=== PATIENT | female | born 1995 | race African-American/Black ===

== ENCOUNTER 2017-03-02 19:18 | Inpatient (IN) | payer OTHER ==
[2017-03-02] MEDS ORDERED: AMPICILLIN - 2 GM in SODIUM CHLORIDE 100 ML IVPB ONE (20:45)
[2017-03-02] MEDS ORDERED: DEXTROSE 5%-LACTATED RINGERS 1,000 ML IV SCH (20:45)
[2017-03-02 21:05] LABS: URINE APPEARANCE CLEAR; URINE BILIRUBIN NEGATIVE (NEGATIVE); URINE BLOOD NEGATIVE (NEGATIVE); URINE COLOR LTYELLOW; URINE GLUCOSE (UA) 1+ (NEGATIVE); URINE KETONE TRACE (NEGATIVE); URINE LEUK ESTERASE NEGATIVE (NEGATIVE); URINE NITRITE NEGATIVE (NEGATIVE); URINE PROTEIN NEGATIVE (NEGATIVE); URINE UROBILINOGEN NEGATIVE mg/dL (0.2-1.0)
[2017-03-02 21:25] VITALS: BMI 24.5
[2017-03-02] MEDS ORDERED: ELECTROLYTE-148 SOLN 1,000 ML IV SCH (21:30)
[2017-03-02] MEDS ORDERED: BUTORPHANOL TARTRATE 1 MG/ML VIAL IVPB ONE (21:30)
[2017-03-02] MEDS ORDERED: PROMETHAZINE HCL 25 MG/1 ML VIAL IVPB ONE (21:30)
[2017-03-02 21:48] LABS: BASOPHIL 0.3 % (0-2.0); EOSINOPHIL 0.5 % (0-4.5); MCH 29.7 pg (25.7-33.7); MEAN CELL VOLUME 87.3 fl (80-96); MEAN PLT VOLUME 8.9 fl (7.5-11.1); NEUTROPHILS 74.2 % (42.8-82.8); PLATELET COUNT 248 K/MM3 (134-434); RDW 12.7 % (11.6-15.6)
[2017-03-02 22:01] LABS: INR 1.02 (0.82-1.09); PROTHROMBIN TIME (PATIENT) 11.2 SEC (9.98-11.88)
[2017-03-02 22:46] LABS: ANION GAP 10 (8-16); CALCIUM 9.4 mg/dL (8.5-10.1); CO2 23 mmol/L (21-32); CREATININE 0.5 mg/dL (0.55-1.02); GLUCOSE,RANDOM 130 mg/dL (74-106)
[2017-03-02 22:53] LABS: URINE MARIJUANA THC NEGATIVE ng/ml (CUTOFF=50)
[2017-03-03 00:02] LABS: HIV 1 & 2 AB NEGATIVE; HIV 1 AGp24 NEGATIVE
[2017-03-03] MEDS ORDERED: AMPICILLIN - 1 GM in SODIUM CHLORIDE 100 ML IVPB SCH (00:45)
--- NOTE | 2017-03-03 01:07 | PN ---
Progress Note (short form) - Note Progress Note: cx ful . 100 vx +! mi, fhr cat 1, arom , clear
--- NOTE | 2017-03-03 01:16 | HP ---
Past Medical History - Primary Care Physician PCP:: John Spence - Admission Chief Complaint: 38.6 weeks, labor History of Present Illness: 03/02/17. 2139 21 yo f care in [facility] c/o of contraction, no rom, no bleeding, cx 3 cm 80 vx -1 mi, fhr cat 1, contraction q 2 min History Source: Patient Limitations to Obtaining History: No Limitations - Past Medical History ...: 1 ...Para: 0 ...Term: 0 ...: 0 ...Spon : 0 ...Induced : 0 ...Multiple Gestation: 0 ...LMP: 06/03/16 ... Weeks Gestation by Dates: 38.6 ...EDC by Dates: 03/10/17 - Past Surgical History Hx Myomectomy: No Hx Transabdominal Cerclage: No - Smoking History Smoking history: Never smoked Have you smoked in the past 12 months: No - Alcohol/Substance Use Hx Alcohol Use: No - Social History Usual Living Arrangement: Yes: With Spouse History of Recent Travel: No Home Medications - Allergies Allergies/Adverse Reactions: Allergies Allergy/AdvReac Type Severity Reaction Status Date / Time onion Allergy Severe Difficulty Verified 03/02/17 20:24 Breathing shellfish derived Allergy Severe Difficulty Verified 03/02/17 20:23 Breathing - Home Medications Home Medications: Ambulatory Orders Vitamins (Sjr) - 1 tab PO DAILY 03/02/17 Review of Systems - Review of Systems Constitutional: reports: No Symptoms Eyes: reports: No Symptoms HENT: reports: No Symptoms Neck: reports: No Symptoms Cardiovascular: reports: No Symptoms Respiratory: reports: No Symptoms Gastrointestinal: reports: No Symptoms Genitourinary: reports: No Symptoms Breasts: reports: No Symptoms Reported Musculoskeletal: reports: No Symptoms Integumentary: reports: No Symptoms Neurological: reports: No Symptoms Endocrine: reports: No Symptoms Physical Exam - Maternity Vital Signs: Vital Signs Temperature 98.5 F 03/02/17 23:00 Pulse Rate 81 03/02/17 23:00 Respiratory Rate 19 03/02/17 23:00 Blood Pressure 122/75 03/02/17 23:00 O2 Sat by Pulse Oximetry (%) Constitutional: Yes: Well Nourished, No Distress, Calm Eyes: Yes: WNL, Conjunctiva Clear, EOM Intact HENT: Yes: WNL, Atraumatic, Normocephalic Neck: Yes: WNL, Supple, Trachea Midline Cardiovascular: Yes: WNL, Regular Rate and Rhythm Breast(s): Yes: WNL - Abdominal Exam/OB Fundal Height: 40 Number of Fetuses: Single Presentation: Vertex Contractions: Yes Regularity: Regular Intensity: Strong Monitor Mode: External Heart Rate Location: [facility] Category: I Accelerations: Uniform Decelerations: None - Vaginal Exam/OB Vaginal Bleediing: No Speculum Exam: No Dilatation (cm): 3 to 4 Effacement (%): 80 Amniotic Membrane Status: Bulging Presentation: Vertex/Position Station: -1 - Physical Exam Musculoskeletal: Yes: WNL Extremities: Yes: WNL Edema: LLE: Trace, RLE: Trace Deep Tendon Reflex Grade: Normal +2 ...Motor Strength: WNL Psychiatric: Yes: WNL - Labs Lab Results: CBC, BMP 03/02/17 21:00 03/02/17 21:00 Hemorrhage Risk Assessment - Risk Factors Risk Score: 0 Risk Level: Low Risk Problem List - Problems (1) with 38 completed weeks gestation Code(s): Z3A.38 - 38 WEEKS GESTATION OF (2) First stage of labor established Code(s): PKB8432 - Assessment/Plan admit, fhm, pain managements
[2017-03-03] MEDS ORDERED: BENZOCAINE 28 GM HEMORRHOIDAL OINTMENT TP PRN (01:56)
[2017-03-03] MEDS ORDERED: BISACODYL 10 MG SUPP.RECT RC PRN (01:56)
[2017-03-03] MEDS ORDERED: oxyCODONE HCL 5 MG TABLET PO PRN (01:56)
[2017-03-03] MEDS ORDERED: BENZOCAINE 20% 57 GM BOTTLE TP PRN (01:56)
[2017-03-03] MEDS ORDERED: METHYLERGONOVINE MALEATE 0.2 MG/1 ML AMP IM PRN (01:56)
[2017-03-03] MEDS ORDERED: WITCH HAZEL 50% (TUCKS) 40 PAD/JAR PAD TP PRN (01:56)
[2017-03-03] MEDS ORDERED: D5W-LR W/ 20 UNITS OXYTOCIN 1,000 ML IV SCH (02:00)
[2017-03-03] MEDS: ACETAMINOPHEN 325 MG TABLET (FP) PO PRN (02:58)
[2017-03-03] MEDS: IBUPROFEN 600 MG TABLET (FP) PO PRN (02:59)
[2017-03-03] MEDS: FERROUS SO4 325 MG TABLET (FP) PO SCH ×2 (08:00→17:43)
[2017-03-03] MEDS: PRENATAL VITAMINS W/ FOLIC ACID TABLET (FP) PO SCH (09:37)
[2017-03-04] MEDS: FERROUS SO4 325 MG TABLET (FP) PO SCH ×2 (08:21→18:03)
[2017-03-04 08:51] LABS: BASOPHIL 0.3 % (0-2.0); EOSINOPHIL 1.2 % (0-4.5); MCHC 33.8 g/dl (32.0-36.0); MEAN PLT VOLUME 8.2 fl (7.5-11.1); NEUTROPHILS 71.2 % (42.8-82.8); PLATELET COUNT 241 K/MM3 (134-434); RDW 12.9 % (11.6-15.6); WHITE BLOOD COUNT 11.8 K/mm3 (4.0-10.0)
--- NOTE | 2017-03-04 09:16 | PN ---
Post Progress Note - Subjective Subjective: 21 yo Para 1, status post normal vaginal delivery, seen and evaluated. Doing well No complaints Post Day: 1 Type of Delivery: Vital Signs: Vital Signs Temperature 98.1 F 03/03/17 20:52 Pulse Rate 80 03/03/17 20:52 Respiratory Rate 20 03/03/17 20:52 Blood Pressure 114/64 03/03/17 20:52 O2 Sat by Pulse Oximetry (%) 100 03/03/17 02:45 Breast Exam: Yes: Soft Uterus: Yes: Fundus Firm Abdomen/GI: Yes: Abdomen soft, Tolerating PO Lochia: Yes: Rubra Lochia, amount: Moderate Extremities: Yes: Calves non-tender Activity: Ambulating - Labs Labs: CBC WBC 11.8 K/mm3 (4.0-10.0) H D 03/04/17 08:35 RBC 3.60 M/mm3 (3.60-5.2) 03/04/17 08:35 Hgb 10.8 GM/dL (10.7-15.3) 03/04/17 08:35 Hct 32.0 % (32.4-45.2) L 03/04/17 08:35 MCV 89.0 fl (80-96) 03/04/17 08:35 MCH 30.0 pg (25.7-33.7) 03/04/17 08:35 MCHC 33.8 g/dl (32.0-36.0) 03/04/17 08:35 RDW 12.9 % (11.6-15.6) 03/04/17 08:35 Plt Count 241 K/MM3 (134-434) 03/04/17 08:35 MPV 8.2 fl (7.5-11.1) 03/04/17 08:35 Neutrophils % 71.2 % (42.8-82.8) 03/04/17 08:35 Lymphocytes % 18.5 % (8-40) 03/04/17 08:35 Monocytes % 8.8 % (3.8-10.2) 03/04/17 08:35 Eosinophils % 1.2 % (0-4.5) D 03/04/17 08:35 Basophils % 0.3 % (0-2.0) 03/04/17 08:35 Problem List - Problems (1) Normal spontaneous vaginal delivery Code(s): O80 - ENCOUNTER FOR FULL-TERM UNCOMPLICATED DELIVERY Assessment/Plan Status post vaginal delivery Stable Continue care
[2017-03-04] MEDS: PRENATAL VITAMINS W/ FOLIC ACID TABLET (FP) PO SCH (10:16)
[2017-03-04] MEDS: ACETAMINOPHEN 325 MG TABLET (FP) PO PRN (15:50)
[2017-03-04] MEDS: IBUPROFEN 600 MG TABLET (FP) PO PRN (15:50)
[2017-03-04] MEDS ORDERED: SENNOSIDES/DOCUSATE COMBO (SENNA PLUS) TABLET (UD) PO PRN (22:00)
--- NOTE | 2017-03-05 00:45 | DS ---
Physical Exam-BUSINESS CHANGE MANAGER Vital Signs: Vital Signs Temperature 98.2 F 03/04/17 22:00 Pulse Rate 83 03/04/17 22:00 Respiratory Rate 20 03/04/17 22:00 Blood Pressure 108/63 03/04/17 22:00 O2 Sat by Pulse Oximetry (%) 100 03/03/17 02:45 Constitutional: Yes: Well Nourished, No Distress, Calm Eyes: Yes: WNL, Conjunctiva Clear, EOM Intact HENT: Yes: WNL, Atraumatic, Normocephalic Neck: Yes: WNL, Supple, Trachea Midline Cardiovascular: Yes: WNL, Regular Rate and Rhythm Respiratory: Yes: WNL, Regular, CTA Bilaterally Gastrointestinal: Yes: WNL ...Rectal Exam: Yes: WNL Renal/: Yes: WNL ....Post : Yes: Uterus firm, Uterus non-tender, Slight lochia rubra Breast(s): Yes: WNL Musculoskeletal: Yes: WNL Extremities: Yes: WNL Edema: No Integumentary: Yes: WNL Neurological: Yes: WNL, Alert, Oriented ...Motor Strength: WNL Psychiatric: Yes: WNL, Alert, Oriented Labs: CBC, BMP 03/04/17 08:35 03/02/17 21:00 Delivery - Delivery Vaginal Delivery: Spontaneous (no complication) Type of Anesthesia: Local Episiotomy/Laceration: Midline EBL (cc): 300 Delivery, Single - Stages of Labor Date 1st Stage Initiatied: 03/02/17 Time 1st Stage Initiated: 17:30 Date 2nd Stage Initiated: 03/03/17 Time 2nd Stage Initiated: 01:00 Date of Delivery: 03/03/17 Time of Delivery: 01:37 Time Placenta Delivered: 01:39 Placenta: Yes: Spontaneous (no complication) - Condition of Addiction Counselor/Hairspring Studder Present: No Infant Gender: Female Weight: 6 lb 13 oz Position: Left, OA Total Hours ROM (Hrs/Mins): 39min - 1 Minute Total Score: 9 5 Minutes Total Score: 9 - Feeding Plan Initial Plan: Elected not to breastfeed exclusively throughout hospitalization Discharge Summary Reason For Visit: LABOR ADMIT Current Active Problems First stage of labor established (Acute) Normal spontaneous vaginal delivery (Acute) with 38 completed weeks gestation (Acute) Procedures: Principal: RODOLFO Hospital Course: uncomplicated Condition: Good - Instructions Diet, Activity, Other Instructions: regular diet, follow up [facility] 4 weeks Referrals: John Spence MD [Staff Physician] - Disposition: HOME - Home Medications Comprehensive Discharge Medication List: Ambulatory Orders Vitamins (Sjr) - 1 tab PO DAILY 03/02/17 Ibuprofen [Motrin -] 600 mg PO QID #28 tablet 03/04/17
[2017-03-05] MEDS: PRENATAL VITAMINS W/ FOLIC ACID TABLET (FP) PO SCH (10:06)
[2017-03-05] MEDS: FERROUS SO4 325 MG TABLET (FP) PO SCH (10:06)
[2017-03-05 12:43] VITALS: BP 106/47; PULSE 91; TEMP 98.3
== END 2017-03-05 12:00 | disposition home or self-care (01) | DRG 560 ==
LOC: JDEL 19:18 → JLDR 20:45 → J3W 03-03 03:30
PROVIDERS: ADMIT Obstetrics & Gynecology; ATTEND Obstetrics & Gynecology
PROC: 10E0XZZ Delivery of Products of Conception, External Approach (ICD-10-PCS; principal; 2017-03-03)
PROC: 0W8NXZZ Division of Female Perineum, External Approach (ICD-10-PCS; 2017-03-03)
DX: O80 Encounter for full-term uncomplicated delivery (principal); Z3A.38 38 weeks gestation of pregnancy; Z37.0 Single live birth
CPT/HCPCS: 36415; 59409; 80048; 80307; 81003; 85025; 85610; 85730; 86593; 86850; 86900; 86901; 87389

== ENCOUNTER 2018-10-14 03:49 | Emergency (ER) | payer OTHER ==
[2018-10-14 04:27] VITALS: BP 121/70; PULSE 112; TEMP 99.2; BMI 21.9
[2018-10-14] MEDS ORDERED: ACETAMINOPHEN 500 MG TABLET (FP) PO ONE (04:37)
--- NOTE | 2018-10-14 04:39 | PDOC ---
History of Present Illness - General Chief Complaint: Cold Symptoms Stated Complaint: BODY ACHE,FEVER Time Seen by Provider: 10/14/18 04:19 History Source: Patient Exam Limitations: No Limitations - History of Present Illness Initial Comments: 10/14/18 04:37 HISTORY OF PRESENT ILLNESS: 23-year-old woman past medical history of asthma presents emergency department for evaluation of sore throat, fevers, body aches , nasal congestion moist productive cough for the past 2 days. Patient is taking Zyrtec to help with the nasal congestion but has not taken any antipyretic or pain medications. Patient reports increasing shortness of breath with inability to walk more than half a block before becoming short of breath. No recent travel or sick contacts. PAST MEDICAL HISTORY: Denies past medical history SURGICAL HISTORY: Denies ALLERGIES: No known drug allergies REVIEW OF SYSTEMS General/Constitutional: +fever. Denies weakness, weight change. HEENT: Denies change in vision. Denies ear pain or discharge. +sore throat. Cardiovascular: Denies chest pain or shortness of breath. Respiratory: Moist productive cough. Denies wheezing, or hemoptysis. Gastrointestinal: Denies nausea, vomiting, diarrhea or constipation. Denies rectal bleeding. Genitourinary: Denies dysuria, frequency, or change in urination. Musculoskeletal: +myalgias. Denies neck or back pain. Skin and breasts: Denies rash or easy bruising. Neurologic: Denies headache, vertigo, loss of consciousness, or loss of sensation. Psychiatric: Denies depression or anxiety. Endocrine: Denies increased thirst. Denies abnormal weight change. Hematologic/Lymphatic: Denies anemia, easy bleeding, or history of blood clots. Allergic/Immunologic: Denies hives or skin allergy. Denies latex allergy. PHYSICAL EXAM General Appearance: Well-appearing, appropriately dressed. No apparent distress , no intoxication. HEENT: EOMI, PERRLA, normal voice, TMs retracted bilaterally. No conjunctival pallor. No photophobia, scleral icterus. Oropharynx erythematous without lesions or exudate. Cobblestoning noted in the posterior. No nasal discharge present. Neck: Supple. Trachea midline. No tenderness, rigidity, carotid bruit, stridor , or thyromegaly. Nontender anterior cervical lymphadenopathy present. Respiratory/Chest: Lungs CTAB. No shortness of breath, chest tenderness, respiratory distress, accessory muscle use. No crackles, rales, rhonchi, stridor , wheezing, dullness Cardiovascular: RRR. S1, S2. No JVD, murmur, bradycardia, tachycardia. Vascular Pulses: Dorsalis-Pedis (R): 2+, Dorsalis-Pedis (L): 2+ Gastrointestinal/Abdominal: Normal bowel sounds. Abdomen soft, non-distended. No tenderness or rebound tenderness. No organomegaly, pulsatile mass, guarding, hernia, hepatomegaly, splenomegaly. Musculoskeletal/Extremities: Normal inspection. FROM of all extremities, normal capillary refill. Pelvis Stable. No CVA tenderness. No tenderness to extremities, pedal edema, swelling, erythema or deformity. Integumentary: Appropriate color, dry, warm. No cyanosis, erythema, jaundice or rash Neurologic: housing liaison II-XII intact. Fully oriented, alert. Appropriate mood/affect. Motor strength 5/5. No appreciable EOM palsy, facial droop or sensory deficit. Past History - Past Medical History Allergies/Adverse Reactions: Allergies Allergy/AdvReac Type Severity Reaction Status Date / Time onion Allergy Severe Difficulty Verified 10/14/18 04:19 Breathing shellfish derived Allergy Severe Difficulty Verified 10/14/18 04:19 Breathing Home Medications: Ambulatory Orders Vitamins (Sjr) - 1 tab PO DAILY 03/02/17 Ibuprofen [Motrin -] 600 mg PO QID #28 tablet 03/04/17 Oseltamivir Phosphate [Tamiflu -] 75 mg PO BID #10 capsule 10/14/18 Asthma: Yes (last attack years ago) Cancer: No Cardiac Disorders: No COPD: No Diabetes: No HTN: No Seizures: No Thyroid Disease: No - Suicide/Smoking/Psychosocial Hx Smoking History: Never smoked Have you smoked in the past 12 months: No Information on smoking cessation initiated: No Hx Alcohol Use: No Drug/Substance Use Hx: No Hx Substance Use Treatment: No *Physical Exam - Vital Signs Last Vital Signs Temp Pulse Resp BP Pulse Ox 99.2 F 112 H 20 121/70 100 10/14/18 04:19 10/14/18 04:19 10/14/18 04:19 10/14/18 04:19 10/14/18 04:19 Moderate Sedation - Procedure Monitoring Vital Signs: Procedure Monitoring Vital Signs Temperature 99.2 F 10/14/18 04:19 Pulse Rate 112 H 10/14/18 04:19 Respiratory Rate 20 10/14/18 04:19 Blood Pressure 121/70 10/14/18 04:19 O2 Sat by Pulse Oximetry (%) 100 10/14/18 04:19 Medical Decision Making - Medical Decision Making 10/14/18 04:38 A/P: 23-year-old woman with 2 days of flulike symptoms Influenza testing Tylenol 1 g orally Reassess 10/14/18 06:14 Influenza A+. I will discharge the patient home with prescription for Tamiflu and continue with supportive treatment. I discussed the physical exam findings, ancillary test results and final diagnoses with the patient. I answered all of the patient's questions. The patient was satisfied with the care received and felt comfortable with the discharge plan and treatment plan. The patient will call their primary care physician within 24 hours to arrange follow-up and will return to the Emergency Department with any new, persistent or worsening symptoms. *DC/Admit/Observation/Transfer Diagnosis at time of Disposition: Influenza A - Discharge Dispostion Disposition: HOME Condition at time of disposition: Stable Decision to Admit order: No - Prescriptions Prescriptions: Oseltamivir Phosphate [Tamiflu -] 75 mg PO BID #10 capsule - Referrals - Patient Instructions Additional Instructions: Rest, drink lots of fluids: Teas, water, soups, Pedialyte Saltwater gargles Steamy showers/seem to face break up mucus Old-fashioned treatments help! Avoid contact with others until fevers and cough resolved as this is very contagious Lots of handwashing and good hygiene Continue [id number] medications for symptomatic relief Tylenol or Motrin for fever and pain Take all of Tamiflu as directed: 1 tab every 12 hours for 5 days Followup with private physician in one to 2 days as needed or if worsening Return to emergency department for worsened symptoms, fevers, dehydration Influenza takes between 5 and 7 days for resolution To not participate in any activity, work, or school until fevers and cough are gone for at least one day - Post Discharge Activity
[2018-10-14] MEDS ORDERED: ACETAMINOPHEN 325 MG TABLET (FP) ONE (04:40)
== END 2018-10-14 06:23 | disposition home or self-care (01) ==
LOC: JER 03:49
DX: J09.X2 Influenza due to identified novel influenza A virus with other respiratory manifestations (principal)
CPT/HCPCS: 87804; 99281-25

== ENCOUNTER 2018-10-15 15:42 | Emergency (ER) | payer OTHER ==
[2018-10-15 15:52] VITALS: BMI 21.9
--- NOTE | 2018-10-15 17:22 | PDOC ---
Attending Attestation - Resident Resident Name: Natasha Jean - HPI HPI: 10/15/18 18:32 Pt presents to the ED complaining of a one day history of persistent vomiting and pleuritic chest pain. Patient was seen in the ED yesterday, treated for flu A and discharged home with tamiflu. Denies fever. does complain of persistent cough. - Physicial Exam PE: 10/15/18 18:34 Pt is alert and oriented x 4 qand in no acute distress. Lungs are clear. Heart has regular rate and rhythm, with mild tachycardia. - Medical Decision Making 10/15/18 18:36 Pt presents to the ED complaining of persistent nausea and vomiting after diagnosed with the flu and started on tamiflu. Differential includes vomiting secondary to flu, medication side effect, dehydration. Will treat with IVF, zofran and tylenol, check labs and reassess. 10/15/18 18:36
[2018-10-15] MEDS ORDERED: SODIUM CHLORIDE 1,000 ML IV STA (17:23)
[2018-10-15] MEDS ORDERED: ONDANSETRON 4 MG/2 ML VIAL IVPUSH ONE (17:23)
[2018-10-15] MEDS ORDERED: ACETAMINOPHEN 1000 MG/100 ML VIAL (NON FORMULARY) IVPB ONE (17:38)
[2018-10-15] MEDS ORDERED: ONDANSETRON 4 MG/2 ML VIAL ONE (17:53)
[2018-10-15] MEDS ORDERED: ACETAMINOPHEN INJECTION 100 ML IVPB ONE (17:53)
[2018-10-15 18:02] LABS: BASO % 0.2 % (0-2.0); EOS % 0.1 % (0-4.5); HEMATOCRIT 36.5 % (32.4-45.2); HEMOGLOBIN 12.8 GM/dL (10.7-15.3); LYMPH % 7.9 % (8-40); MCH 28.3 pg (25.7-33.7); MCHC 35.2 g/dl (32.0-36.0); MEAN CELL VOLUME 80.2 fl (80-96); MEAN PLT VOLUME 8.8 fl (7.5-11.1); MONO % 12.1 % (3.8-10.2); NEUT % 79.7 % (42.8-82.8); PLATELET COUNT 219 K/MM3 (134-434); RBC 4.55 M/mm3 (3.60-5.2); RDW 17.4 % (11.6-15.6); WHITE BLOOD COUNT 11.5 K/mm3 (4.0-10.0)
--- NOTE | 2018-10-15 18:09 | PDOC ---
History of Present Illness - General Chief Complaint: Nausea/Vomiting Stated Complaint: ABD PAIN/ LOWER BACK PAIN Time Seen by Provider: 10/15/18 17:20 History Source: Patient Exam Limitations: No Limitations - History of Present Illness Initial Comments: Pt is a 23 yo F, with PMH of asthma, who is presenting with complaints of nausea , vomiting, and chest pressure which is worse with coughing. Pt was seen in the ER yesterday, for complaints of 3 days of nasal congestion, clear rhinorrhea, cough productive of clear sputum, diffuse body aches, and subjective fevers/ chills. She was prescribed Tamiflu after testing positive for influenza A. After taking Tamiflu, pt had 7-8 episodes of NBNB vomiting and loose brown stool , with drops of "blood mixed in" after wretching. Pt did not take any OTC tylenol at home for fever or discomfort. Pt denies any vision changes, neck pain or stiffness, syncope, palpitations, SOB, abdominal pain, urinary symptoms , joint or leg swelling. Social: Pt denies any cigarette, alcohol, or drug use. Pt denies any recent travel or sick contacts. Surgical: no relevant history. Family: no relevant history. 10/15/18 18:21 Past History - Travel Traveled outside of the country in the last 30 days: No Close contact w/someone who was outside of country & ill: No - Past Medical History Allergies/Adverse Reactions: Allergies Allergy/AdvReac Type Severity Reaction Status Date / Time onion Allergy Severe Difficulty Verified 10/15/18 15:53 Breathing shellfish derived Allergy Severe Difficulty Verified 10/15/18 15:53 Breathing Home Medications: Ambulatory Orders Oseltamivir Phosphate [Tamiflu -] 75 mg PO BID #10 capsule 10/14/18 Nitrofurantoin Monohyd/M-Cryst [Macrobid -] 100 mg PO BID 5 Days #10 capsule 04/27 Asthma: Yes (last attack years ago) Cancer: No Cardiac Disorders: No COPD: No Diabetes: No HTN: No Seizures: No Thyroid Disease: No - Suicide/Smoking/Psychosocial Hx Smoking History: Never smoked Have you smoked in the past 12 months: No Information on smoking cessation initiated: No Hx Alcohol Use: No Drug/Substance Use Hx: No Hx Substance Use Treatment: No Review of Systems - Review of Systems Able to Perform ROS?: Yes Is the patient limited Eritrean proficient: No Constitutional: Yes: Chills, Fever, Loss of Appetite, Malaise, Weight Stable. No: Diaphoresis, Night Sweats, Weakness HEENTM: Yes: See HPI, Nose Congestion. No: Recent change in vision, Ear Pain, Nose Bleeding, Throat Pain, Throat Swelling, Difficulty Swallowing Respiratory: Yes: See HPI, Cough, Productive cough. No: Orthopnea, Shortness of Breath, Wheezing, Hemoptysis Cardiac (ROS): Yes: See HPI, Other (chest pressure). No: Chest Pain, Edema, Irregular Heart Rate, Lightheadedness, Palpitations, Syncope, Chest Tightness ABD/GI: Yes: Diarrhea, Nausea, Poor Appetite, Poor Fluid Intake, Vomiting. No: Constipated, Difficulty Swallowing, Rectal Bleeding, Abdominal cramping : No: Burning, Dysuria, Frequency, Hematuria, Pain, Urgency Musculoskeletal: Yes: Muscle Pain. No: Back Pain, Joint Pain, Muscle Weakness Integumentary: No: Rash Neurological: No: Headache, Numbness, Weakness, Unsteady Gait, Dizziness Psychiatric: No: Sleep Pattern Change, Change in Appetite Endocrine: No: Increased Urine, Change in Weight Hematologic/Lymphatic: No: Anemia, Blood Clots, Easy Bleeding, Easy Bruising *Physical Exam - Vital Signs Last Vital Signs Temp Pulse Resp BP Pulse Ox 99.6 F 103 H 19 129/69 99 10/15/18 15:50 10/15/18 15:50 10/15/18 15:50 10/15/18 15:50 10/15/18 15:50 - Physical Exam Comments: Pt afebrile, mildly tachycardic at 103. Pt appears anxious and uncomfortable, but is in NAD. Normal body habitus. PE showed pt alert and oriented. recording engineer generally intact, muscular strength and sensation intact. Eyes PERRLA, EOMI. Oropharynx without erythema or exudates, no LAD b/l. Moist mucous membranes and pt has abundant tears. Dried nasal congestion, hearing intact. Clear heart sounds, S1/S2, no JVD, b/l pedal edema, or heart murmur. Clear lung sounds, no respiratory distress, wheezes, crackles, subcutaneous emphysema, or accessory muscle use. No reproducible chest wall tenderness to palpation. No abdominal or CVA tenderness to palpation, no rebound, no guarding. Abdomen soft, non- distended, and with normoactive bowel sounds. Skin without jaundice or rash. 10/15/18 18:18 Moderate Sedation - Procedure Monitoring Vital Signs: Procedure Monitoring Vital Signs Temperature 99.6 F 10/15/18 15:50 Pulse Rate 103 H 10/15/18 15:50 Respiratory Rate 10/15/18 15:50 Blood Pressure 129/69 10/15/18 15:50 O2 Sat by Pulse Oximetry (%) 99 10/15/18 15:50 ED Treatment Course - LABORATORY CBC & Chemistry Diagram: 10/15/18 17:51 10/15/18 17:51 - RADIOLOGY Radiology Studies Ordered: Category Date Time Status CHEST PA & LAT [RAD] Stat Radiology 10/15/18 17:38 Ordered - Medications Given in the ED: ED Medications Discontinued Medications Generic Name Dose Route Start Last Admin Trade Name Freq PRN Reason Stop Dose Admin Acetaminophen 1,000 mg 10/15/18 17:38 10/15/18 18:05 Ofirmev Injection - IVPB 10/15/18 17:39 1,000 mg ONCE ONE Administration Ondansetron HCl 4 mg 10/15/18 17:23 10/15/18 18:05 Zofran Injection IVPUSH 10/15/18 17:24 4 mg ONCE ONE Administration Medical Decision Making - Medical Decision Making Pt was seen at bedside, also will be seen by attending Dr. Spencer. Pt presenting with complaints of nausea, vomiting, and chest pressure which is worse with coughing. Pt was seen in the ER yesterday, for complaints of 3 days of nasal congestion, clear rhinorrhea, cough productive of clear sputum, diffuse body aches, and subjective fevers/chills. She was prescribed Tamiflu after testing positive for influenza A. After taking Tamiflu, pt had 7-8 episodes of NBNB vomiting and loose brown stool, with drops of "blood mixed in" after wretching. Pt did not take any OTC tylenol at home for fever or discomfort. Pt denies any vision changes, neck pain or stiffness, syncope, palpitations, SOB, abdominal pain, urinary symptoms, joint or leg swelling. Pt afebrile, mildly tachycardic at 103. Pt appears anxious and uncomfortable, but is in NAD. Normal body habitus. PE showed pt alert and oriented. recording engineer generally intact, muscular strength and sensation intact. Eyes PERRLA, EOMI. Oropharynx without erythema or exudates, no LAD b/l. Moist mucous membranes and pt has abundant tears. Dried nasal congestion, hearing intact. Clear heart sounds, S1/S2, no JVD, b/l pedal edema, or heart murmur. Clear lung sounds, no respiratory distress, wheezes, crackles, subcutaneous emphysema, or accessory muscle use. No reproducible chest wall tenderness to palpation. No abdominal or CVA tenderness to palpation, no rebound, no guarding. Abdomen soft, non- distended, and with normoactive bowel sounds. Skin without jaundice or rash. Likely adverse reaction to Tamiflu with nausea and vomiting. Will get basic labs , x-ray, and UA to r/o UTI, overlying pneumonia, electrolyte imbalances. Very unlikely PE, as pt has symptoms suggestive of infectious nature, no hormone therapy, recent surgeries/travel/bedrest, no history of clots. Ordered work-up including CBC, CMP, serum , UA, urine culture, chest x- ray, ECG. Provided 1 L IV NS, 4 mg IV zofran, and 1 g ofirmev for improvement of discomfort and nausea. Will continue to reassess pt and monitor for symptomatic improvement. ECG: NSR, intervals WNL. No TWIs or significant ST segment changes. No significant changes from prior ECG. 10/15/18 18:11 CBC: WBC mildly elevated 11.5 CMP: Na 133, K 3.2 -- pt has n/v/d, tolerating PO intake now in ER. Serum test negative 10/15/18 18:40 Pt taken for chest x-ray. 10/15/18 18:42 Chest x-ray with no infiltrates. UA 3+ LE, +nitrites, +blood -- will treat for UTI. 10/15/18 19:00 Providing pt first dose of macrobid, will send remaining to pharmacy. Considering normal lab results and imaging, pt can be discharged to home with follow-up. Pt advised to follow-up with PCP in 1-2 days. Strict return precautions provided with pt understanding. Pt advised to d/c Tamiflu and to continue hydrating at home. Providing note for school. 10/15/18 19:09 *DC/Admit/Observation/Transfer Diagnosis at time of Disposition: Influenza A - Discharge Dispostion Disposition: HOME Condition at time of disposition: Improved Decision to Admit order: No - Prescriptions Prescriptions: Nitrofurantoin Monohyd/M-Cryst [Macrobid -] 100 mg PO BID 5 Days #10 capsule - Referrals Referrals: ON STAFF,NOT [Primary Care Provider] - - Patient Instructions Printed Discharge Instructions: DI for Influenza -- Adult Additional Instructions: You were seen in the ER today for nausea, vomiting, and diarrhea. The results of your labs and imaging today showed a urinary tract infection. We have sent antibiotics to your pharmacy. Please follow-up with your primary care doctor within a few days to discuss your visit and make sure your symptoms have improved. Please return to the ER if you have any worsening pain, fevers or chills that does not improve with tylenol or motrin, loss of consciousness, inability to tolerate food or fluids, or any other concerns. Please take your antibiotics as prescribed. You can continue to take tylenol or motrin every 4-6 hours for fever and discomfort. Please try to hydrate with fluids at home and eat as tolerated. - Post Discharge Activity Forms/Work/School Notes: Back to School
[2018-10-15 18:29] LABS: ALBUMIN 4.2 g/dl (3.4-5.0); ALK PHOS 76 U/L (45-117); ANION GAP 10 MMOL/L (8-16); BILIRUBIN,TOTAL 1.1 mg/dL (0.2-1); BLOOD UREA NITROGEN 10 mg/dL (7-18); CHLORIDE 100 mmol/L (98-107); CO2 22 mmol/L (21-32); CREATININE 0.8 mg/dL (0.55-1.3); GLUCOSE,RANDOM 104 mg/dL (74-106); POTASSIUM 3.2 mmol/L (3.5-5.1); SGOT/AST 20 U/L (15-37); SGPT/ALT 26 U/L (13-61); SODIUM 133 mmol/L (136-145); TOT PROT 8.9 g/dl (6.4-8.2)
[2018-10-15 18:55] LABS: URINE APPEARANCE CLOUDY; URINE BILIRUBIN NEGATIVE (<2.0 mg/dL); URINE COLOR YELLOW; URINE GLUCOSE (UA) NEGATIVE (NEGATIVE); URINE KETONE NEGATIVE (NEGATIVE); URINE LEUK ESTERASE 3+ (NEGATIVE); URINE NITRITE POSITIVE (NEGATIVE); URINE PROTEIN 2+ (NEGATIVE)
[2018-10-15] MEDS ORDERED: NITROFURANTOIN MACROCRYSTAL 50 MG CAPSULE (FP) ONE (19:12)
[2018-10-15] MEDS ORDERED: NITROFURANTOIN MACROCRYSTAL 50 MG CAPSULE (FP) PO SCH (19:15)
[2018-10-15 19:38] VITALS: BP 112/68; PULSE 90; TEMP 98.3
--- NOTE | 2018-10-16 11:53 | EKG ---
Test Reason : Blood Pressure : / mmHG Vent. Rate : 096 BPM Atrial Rate : 096 BPM P-R Int : 128 ms QRS Dur : 074 ms QT Int : 318 ms P-R-T Axes : -24 060 029 degrees QTc Int : 401 ms NORMAL SINUS RHYTHM NONSPECIFIC T WAVE ABNORMALITY ABNORMAL ECG NO PREVIOUS ECGS AVAILABLE Confirmed by SHADE ROWELY, ABDOUL ([id number]) on 10/16/2018 11:53:35 AM Referred By: Confirmed By:ABDOUL LAGUERRE MD
== END 2018-10-15 19:38 | disposition home or self-care (01) ==
LOC: JER 15:42
PROC: 3E0337Z Introduction of Electrolytic and Water Balance Substance into Peripheral Vein, Percutaneous Approach (ICD-10-PCS; principal; 2018-10-15)
PROC: 3E033GC Introduction of Other Therapeutic Substance into Peripheral Vein, Percutaneous Approach (ICD-10-PCS; 2018-10-15)
PROC: 3E033NZ Introduction of Analgesics, Hypnotics, Sedatives into Peripheral Vein, Percutaneous Approach (ICD-10-PCS; 2018-10-15)
DX: N39.0 Urinary tract infection, site not specified (principal); J09.X2 Influenza due to identified novel influenza A virus with other respiratory manifestations
CPT/HCPCS: 36415; 71046-TC-FY; 80053; 81003; 81015; 84703; 85025; 87086; 87186; 93005; 93010; 96361; 96374; 96375; 99283-25; J0131; J7030

== ENCOUNTER 2018-10-17 23:29 | Emergency (ER) | payer OTHER ==
[2018-10-17 23:36] VITALS: BP 116/70; PULSE 112; TEMP 99.8; BMI 21.9
--- NOTE | 2018-10-17 23:57 | PDOC ---
History of Present Illness <Devorah Flaherty - Last Filed: 10/18/18 00:23> - General History Source: Patient Exam Limitations: No Limitations - History of Present Illness Initial Comments: 10/18/18 00:51 The patient is a 23 year old female, with a significant past medical history of asthma, who presents to the emergency department with, cough, nasal congestion, and back pain. Patient was evaluated in the ER twice recently at which time she presented with similar symptoms and was diagnosed with influenza. Patient endorses her symptoms persisted with associated fevers. She notes taking Tylenol and albuterol treatments, with minimal relief. She denies recent headache or dizziness. She denies recent nausea, vomit, diarrhea or constipation. She denies recent dysuria, frequency, urgency or hematuria. She denies recent chest pain. Allergies: Onion, shellfish derived, penicillin. Past surgical history: None reported. Social history: Positive sick contacts, daughter is flu positive. <Alexander Haas - Last Filed: 10/18/18 00:56> - General Chief Complaint: Respiratory Stated Complaint: cough and cold symptoms Time Seen by Provider: 10/17/18 23:55 Past History - Past Medical History Asthma: Yes (last attack years ago) Cancer: No Cardiac Disorders: No COPD: No Diabetes: No HTN: No Seizures: No Thyroid Disease: No - Suicide/Smoking/Psychosocial Hx Smoking History: Never smoked Have you smoked in the past 12 months: No Information on smoking cessation initiated: No Hx Alcohol Use: No Drug/Substance Use Hx: No Hx Substance Use Treatment: No <Devorah Flaherty - Last Filed: 10/18/18 00:23> <Alexander Haas - Last Filed: 10/18/18 00:56> - Past Medical History Allergies/Adverse Reactions: Allergies Allergy/AdvReac Type Severity Reaction Status Date / Time onion Allergy Severe Difficulty Verified 10/15/18 15:53 Breathing shellfish derived Allergy Severe Difficulty Verified 10/15/18 15:53 Breathing Penicillins Allergy Verified 10/17/18 23:37 Home Medications: Ambulatory Orders Oseltamivir Phosphate [Tamiflu -] 75 mg PO BID #10 capsule 10/14/18 Nitrofurantoin Monohyd/M-Cryst [Macrobid -] 100 mg PO BID 5 Days #10 capsule 04/27 Acetaminophen 650 mg PO QID PRN #30 tablet MDD 8 tabs 10/18/18 Prednisone [Deltasone] 20 mg PO DAILY #3 tablet MDD 1 tab 10/18/18 Review of Systems - Review of Systems Able to Perform ROS?: Yes Comments:: 10/18/18 00:51 CONSTITUTIONAL: Present: Fever. EYES: Absent: visual changes ENT: Present: Nasal congestion. Absent: ear pain, no sore throat CARDIOVASCULAR: Absent: chest pain, no palpitations RESPIRATORY: Present: Cough. GI: Absent: abdominal pain, no nausea, no vomiting, no constipation, no diarrhea GENITOURINARY: Absent: dysuria, no frequency, no hematuria MUSKULOSKELETAL: Present: Back pain. Absent: no arthralgia, no myalgia SKIN: Absent: rash NEURO: Absent: headache <Alexander Haas - Last Filed: 10/18/18 00:56> *Physical Exam - Vital Signs Last Vital Signs Temp Pulse Resp BP Pulse Ox 99.8 F H 112 H 25 H 116/70 100 10/17/18 23:35 10/17/18 23:35 10/17/18 23:35 10/17/18 23:35 10/17/18 23:35 <Devorah Flaherty - Last Filed: 10/18/18 00:23> - Vital Signs Last Vital Signs Temp Pulse Resp BP Pulse Ox 99.8 F H 112 H 25 H 116/70 100 10/17/18 23:35 10/17/18 23:35 10/17/18 23:35 10/17/18 23:35 10/17/18 23:35 - Physical Exam Comments: 10/18/18 00:52 GENERAL: Well developed, well nourished. Awake and alert. No acute distress. +HEENT: Nasal congestion. Normocephalic, atraumatic. PERRLA, EOMI. No conjunctival pallor. Sclera are non-icteric. Oropharynx is clear. NECK: Supple. Full ROM. No JVD. Carotid pulses 2+ and symmetric, without bruits. No thyromegaly. No lymphadenopathy. +CARDIOVASCULAR: Tachycardic. Regular rhythm. No murmurs, rubs, or gallops. Distal pulses are 2+ and symmetric. PULMONARY: No evidence of respiratory distress. Not hypoxic. Saturating 100% on room air. Lungs clear to auscultation bilaterally. No wheezing, rales or rhonchi. ABDOMINAL: Soft. Non-tender. Non-distended. No rebound or guarding. No organomegaly. Normoactive bowel sounds. MUSCULOSKELETAL Normal range of motion at all joints. No bony deformities or tenderness. No CVA tenderness. EXTREMITIES: No cyanosis. No clubbing. No edema. No calf tenderness. SKIN: Warm and dry. Normal capillary refill. No rashes. No jaundice. NEUROLOGICAL: Alert, awake, appropriate. Cranial nerves 2-12 intact. No deficits to light touch and temperature in face, upper extremities and lower extremities. No motor deficits in the in face, upper extremities and lower extremities. Normoreflexic in the upper and lower extremities. Normal speech. Toes are down- going bilaterally. PSYCHIATRIC: Cooperative. Good eye contact. Appropriate mood and affect. <Alexander Haas - Last Filed: 10/18/18 00:56> Moderate Sedation - Procedure Monitoring Vital Signs: Procedure Monitoring Vital Signs Temperature 99.8 F H 10/17/18 23:35 Pulse Rate 112 H 10/17/18 23:35 Respiratory Rate 25 H 10/17/18 23:35 Blood Pressure 116/70 10/17/18 23:35 O2 Sat by Pulse Oximetry (%) 100 10/17/18 23:35 <Devorah Flaherty - Last Filed: 10/18/18 00:23> - Procedure Monitoring Vital Signs: Procedure Monitoring Vital Signs Temperature 99.8 F H 10/17/18 23:35 Pulse Rate 112 H 10/17/18 23:35 Respiratory Rate 25 H 10/17/18 23:35 Blood Pressure 116/70 10/17/18 23:35 O2 Sat by Pulse Oximetry (%) 100 10/17/18 23:35 <Alexander Haas - Last Filed: 10/18/18 00:56> ED Treatment Course - Medications Given in the ED: ED Medications Discontinued Medications Generic Name Dose Route Start Last Admin Trade Name Freq PRN Reason Stop Dose Admin Prednisone 60 mg 10/18/18 00:15 10/18/18 00:30 Deltasone - PO 10/18/18 00:16 60 mg ONCE ONE Administration <Alexander Haas - Last Filed: 10/18/18 00:56> *DC/Admit/Observation/Transfer <Devorah Flaherty - Last Filed: 10/18/18 00:23> - Attestations Scribe Attestion: 10/18/18 00:55 Documentation prepared by Alexander Haas, acting as medical reception specialist for Devorah Flaherty MD. <Alexander Haas - Last Filed: 10/18/18 00:56> Diagnosis at time of Disposition: Influenza A - Discharge Dispostion Disposition: HOME Condition at time of disposition: Stable - Prescriptions Prescriptions: Acetaminophen 650 mg PO QID PRN #30 tablet MDD 8 tabs PRN Reason: Pain Or Fever Prednisone [Deltasone] 20 mg PO DAILY #3 tablet MDD 1 tab - Patient Instructions Printed Discharge Instructions: DI for Influenza -- Adult Additional Instructions: shredder picker your medications at your pharmacy please use your albuterol as needed take tylenol or motrin for fever and pain rest stay hydrated
[2018-10-18] MEDS ORDERED: predniSONE 20 MG TABLET (UD) PO ONE (00:15)
[2018-10-18] MEDS ORDERED: predniSONE 20 MG TABLET (UD) ONE (00:26)
[2018-10-18] MEDS ORDERED: AZITHROMYCIN 250 MG TABLET ONE (00:27)
== END 2018-10-18 00:47 | disposition home or self-care (01) ==
LOC: JER 23:29
DX: J09.X2 Influenza due to identified novel influenza A virus with other respiratory manifestations (principal); Z87.09 Personal history of other diseases of the respiratory system; Z88.0 Allergy status to penicillin; Z91.013 Allergy to seafood; Z91.018 Allergy to other foods
CPT/HCPCS: 99282-25

== ENCOUNTER 2022-10-11 19:19 | Emergency (ER) | payer OTHER ==
[2022-10-11 19:30] VITALS: BP 112/66; PULSE 89; RESP 20; TEMP 98.6; BMI 19.2
[2022-10-11] MEDS ORDERED: ACETAMINOPHEN 500 MG TABLET (FP) ONE (20:09)
[2022-10-11] MEDS ORDERED: ONDANSETRON *ODT* 4 MG TABLET ONE (20:09)
[2022-10-11] MEDS ORDERED: ACETAMINOPHEN 500 MG TABLET (FP) PO ONE (20:09)
[2022-10-11] MEDS ORDERED: ONDANSETRON *ODT* 4 MG TABLET SL ONE (20:09)
[2022-10-11 20:27] LABS: BASO % 1.1 % (0-2.0); EOS % 4.7 % (0-4.5); HEMATOCRIT 33.6 % (32.4-45.2); HEMOGLOBIN 11.2 GM/dL (10.7-15.3); LYMPH % 43.1 % (8-40); MCH 28.5 pg (25.7-33.7); MCHC 33.4 g/dl (32.0-36.0); MEAN CELL VOLUME 85.1 fl (80-96); MEAN PLT VOLUME 8.1 fl (7.5-11.1); MONO % 11.7 % (3.8-10.2); NEUT % 39.4 % (42.8-82.8); PLATELET COUNT 321 10^3/uL (134-434); RBC 3.94 M/mm3 (3.60-5.2); RDW 15.1 % (11.6-15.6); WHITE BLOOD COUNT 5.8 K/mm3 (4.0-10.0)
[2022-10-11 20:31] LABS: HCG,QUALITATIVE URINE Positive
[2022-10-11 20:35] LABS: EPI CELLS 18 /uL (0-25.1); HYALINE CASTS 0 /uL (0-3.1); URINE APPEARANCE CLEAR; URINE BACTERIA 109 /uL (0-1359); URINE BILIRUBIN NEGATIVE (NEGATIVE); URINE COLOR YELLOW; URINE GLUCOSE (UA) NEGATIVE (NEGATIVE); URINE KETONE NEGATIVE (NEGATIVE); URINE LEUK ESTERASE NEGATIVE (NEGATIVE); URINE NITRITE NEGATIVE (NEGATIVE); URINE PROTEIN NEGATIVE (NEGATIVE); URINE RBC 15 /uL (0-23.9); URINE WBC 6 /uL (0-25.8)
[2022-10-11 20:55] LABS: CALCIUM 8.7 mg/dL (8.5-10.1)
[2022-10-11 20:57] LABS: BLOOD UREA NITROGEN 10.1 mg/dL (7-18)
[2022-10-11 20:59] LABS: CREATININE 0.5 mg/dL (0.55-1.3)
== END 2022-10-11 21:44 | disposition home or self-care (01) ==
LOC: JERFT 19:19
DX: O20.9 Hemorrhage in early pregnancy, unspecified (principal); Z3A.01 Less than 8 weeks gestation of pregnancy
CPT/HCPCS: 36415; 76817-TC; 80048; 81003; 84702; 84703; 85025; 86850; 86900; 86901; 87086; 99284-25; Q0162

== ENCOUNTER 2022-10-18 14:35 | Emergency (ER) | payer OTHER ==
[2022-10-18 14:39] VITALS: BP 118/65; PULSE 77; RESP 18; BMI 18.4
[2022-10-18 15:51] LABS: BASO % 0.9 % (0-2.0); EOS % 4.5 % (0-4.5); HEMATOCRIT 34.3 % (32.4-45.2); HEMOGLOBIN 11.5 GM/dL (10.7-15.3); LYMPH % 34.1 % (8-40); MCH 28.8 pg (25.7-33.7); MCHC 33.5 g/dl (32.0-36.0); MEAN CELL VOLUME 85.9 fl (80-96); MEAN PLT VOLUME 7.4 fl (7.5-11.1); MONO % 8.2 % (3.8-10.2); NEUT % 52.3 % (42.8-82.8); PLATELET COUNT 346 10^3/uL (134-434); RBC 3.99 M/mm3 (3.60-5.2); RDW 15.2 % (11.6-15.6); WHITE BLOOD COUNT 4.7 K/mm3 (4.0-10.0)
[2022-10-18 16:11] VITALS: TEMP 97.3
[2022-10-18 16:34] LABS: CALCIUM 9.2 mg/dL (8.5-10.1)
[2022-10-18 16:35] LABS: ALBUMIN 3.9 g/dl (3.4-5.0); BLOOD UREA NITROGEN 8.2 mg/dL (7-18)
[2022-10-18 16:38] LABS: CREATININE 0.6 mg/dL (0.55-1.3)
[2022-10-18 16:40] LABS: BILIRUBIN,TOTAL 0.9 mg/dL (0.2-1); TOT PROT 7.7 g/dl (6.4-8.2)
== END 2022-10-18 16:44 | disposition left against medical advice (07) ==
LOC: JER 14:35
DX: O20.9 Hemorrhage in early pregnancy, unspecified (principal)
CPT/HCPCS: 36415; 80053; 84702; 85025; 99283-25